=== PATIENT | female | born 1990 | race African-American/Black ===

== ENCOUNTER 2016-10-16 21:24 | Emergency (ER) | payer OTHER ==
[~2016-10-16] VITALS: Ht 165.1 cm; Wt 72.6 kg
== END 2016-10-16 23:20 | disposition home or self-care (01) ==
LOC: CED 21:24 → CFTX 23:10 → CED 23:10
DX: K08.89 Other specified disorders of teeth and supporting structures (principal)
CPT/HCPCS: 99283